=== PATIENT | male | born 1960 | race African-American/Black ===

== ENCOUNTER 2016-07-16 23:36 | Emergency (ER) | payer OTHER ==
[~2016-07-16] VITALS: Ht 182.9 cm; Wt 90.0 kg
[2016-07-16 23:50] VITALS: Ht 182.9 cm; Wt 90.0 kg
[2016-07-17] MEDS ORDERED: INSULIN REGULAR, HUMAN 100 UNIT/1 ML 3ML VIAL SC ONE
--- NOTE | 2016-07-17 00:08 | ERD ---
ER Documentation Chief Complaint Date/Time DATE: 07/17/16 TIME: 00:06 Chief Complaint arrested 6 hrs previously. had HTN and hyper glycemia at [facility], BS 346 HPI This is a 53 mils arrest 6 hours ago. Patient has history of hypertension diabetes. He was found to have elevated blood sugar blood pressure. He is here for medical clearance. Patient denies any current complaints. ROS All systems reviewed and are negative except as per history of present illness. PMhx/Soc Hx Miscellaneous Medical Probl: Yes (glaucoma, HTN, DM) Hx Alcohol Use: No Hx Substance Use: No Hx Tobacco Use: No Smoking Status: Never smoker Physical Exam Vitals Vital Signs Date Time Temp Pulse Resp B/P Pulse Ox O2 Delivery O2 Flow Rate FiO2 07/16/16 23:50 97.4 82 16 216/105 99 Physical Exam Const: [] Head: Atraumatic Eyes: Normal Conjunctiva ENT: Normal External Ears, Nose and Mouth. Neck: Full range of motion..~ No meningismus. Resp: Clear to auscultation bilaterally Cardio: Regular rate and rhythm, no murmurs Abd: Soft, non tender, non distended. Normal bowel sounds Skin: No petechiae or rashes Back: No midline or flank tenderness Ext: No cyanosis, or edema Neur: Awake and alert Psych: Normal Mood and Affect Results 24 hrs Laboratory Tests Test 07/16/16 23:49 Bedside Glucose 346mg/dL Current Medications Medications (Trade) Dose Ordered Sig/Dasha Route PRN Reason Start Time Stop Time Status Last Admin Dose Admin Hydralazine HCl (Apresoline) 100 mg ONCE ONCE PO 07/17/16 00:00 07/17/16 00:01 DC Insulin Human Regular (Humulin R) 6 unit ONCE ONCE SC 07/17/16 00:00 07/17/16 00:01 DC Procedures/MDM Patient's blood pressure was elevated (>120/80) but appears stable without evidence of hypertension emergency or urgency. The patient was counseled about the risks of hypertension and urged to pursue outpatient monitoring and therapy within a week with their primary care physician. Patient's blood pressure is treated here with hydralazine p.o. Blood sugars treated with 6 units of subcutaneous insulin. Blood sugar and what blood pressure normalized. Patient be discharged in police custody. Departure Diagnosis: Primary Impression: Encounter for medical clearance for patient hold Additional Impressions: Hypertension Hypertension type: essential hypertension Qualified Code: I10 - Essential hypertension Hyperglycemia Condition: Stable NATO APARICIO Jul 17, 2016 00:08
[2016-07-17] MEDS ORDERED: HYDROCODONE/APAP (5/325) TAB PO ONE (00:30)
[2016-07-17 01:17] VITALS: BP 162/80; PULSE 72; RESP 17
== END 2016-07-17 01:18 | disposition home or self-care (01) ==
LOC: E/R 23:36
DX: Z02.89 Encounter for other administrative examinations (principal); I10 Essential (primary) hypertension; E11.65 Type 2 diabetes mellitus with hyperglycemia; Z96.641 Presence of right artificial hip joint
CPT/HCPCS: 82962; 96372; 99284; J1815